=== PATIENT | female | born 1955 ===

== ENCOUNTER 2018-07-27 10:45 | Outpatient (CLI) | payer OTHER ==
[~2018-07-27] VITALS: Ht 152.4 cm; Wt 61.2 kg
== END 2018-07-27 11:00 | disposition home or self-care (01) ==
LOC: OFIC 805 10:45
DX: H90.3 Sensorineural hearing loss, bilateral (principal); H93.11 Tinnitus, right ear; H69.81 Other specified disorders of Eustachian tube, right ear; R04.0 Epistaxis; J31.0 Chronic rhinitis

== ENCOUNTER 2018-08-27 12:02 | Outpatient (CLI) | payer OTHER | END 2018-08-27 17:00 | disposition home or self-care (01) | LOC: TOM 12:02 | DX: R04.0 Epistaxis (principal); J32.8 Other chronic sinusitis ==

== ENCOUNTER 2018-09-14 11:51 | Outpatient (CLI) | payer OTHER ==
[~2018-09-14] VITALS: Ht 152.4 cm; Wt 61.2 kg
== END 2018-09-14 12:10 | disposition home or self-care (01) ==
LOC: OFIC 805 11:51
DX: H93.11 Tinnitus, right ear (principal); J31.0 Chronic rhinitis